=== PATIENT | male | born 1960 | race Caucasian/White ===

== ENCOUNTER 2016-11-26 22:16 | Emergency (ER) | payer BC ==
[2016-11-26] MEDS ORDERED: ONDANSETRON HCL/PF 2 MG/ML VIAL ONE (22:44)
[2016-11-26] MEDS ORDERED: MORPHINE SULFATE 2 MG/ML DISP.SYRIN ONE ×2 (22:44→23:36)
[2016-11-26] MEDS ORDERED: MORPHINE SULFATE 2 MG/ML DISP.SYRIN IV ONE ×2 (22:44→23:34)
[2016-11-26] MEDS ORDERED: ONDANSETRON HCL/PF 2 MG/ML VIAL IV ONE (22:44)
--- NOTE | 2016-11-26 22:48 | ERNOTE ---
Upper Extremity HPI - General Extremities Pain Location: shoulder: right - pain after fall Time Seen by Provider: 11/26/16 22:44 Source: patient Exam Limitations: no limitations - Immun/Allergies/Home Medications Immunizations: IMMUNIZATION HX Immunizations Up to Date Yes Allergies/Adverse Reactions: Allergies Allergy/AdvReac Type Severity Reaction Status Date / Time No Known Allergies Allergy Unverified 11/26/16 22:29 Home Medications: HOME MEDICATIONS HYDROcodone/ACETAMINOPHEN [Lorcet 5-325 mg Tablet] 1 - 2 each PO QID PRN #40 tablet 11/27/16 [Last Taken Unknown] - History of Present Illness Narrative: Pt slipped at [employer] and tried to catch himself with his right arm as he fell. Pt now has pain and deformity of his right shoulder. Occurred: just prior to arrival Location of Incident: work Severity: moderate Method of Injury: Reports: fell Reason for Fall: Reports: slipped Loss of Consciousness: Reports: no loss of consciousness Modifying Factors - (Worsens): Reports: movement Other Injuries: Reports: none Review of Systems - Review of Systems Constitutional: Absent: recent illness EYE: Present: no symptoms reported ENT: Present: no symptoms reported Respiratory: Absent: shortness of breath Cardiology: Absent: chest pain Gastrointestinal/Abdominal: Present: no symptoms reported Genitourinary: Present: no symptoms reported Musculoskeletal: Present: See HPI. Absent: back pain Skin: Present: no symptoms reported Hematologic/Lymphatic: Present: no symptoms reported - Patient's Past Medical History Patient History - Medical: No pertinent hx Patient History - Cardiac/Respiratory: Hypertension Patient History - Cancer: No Hx of Cancer Patient History - Surgical Procedures: No surgical history Patient History - Other: None - Social History Living Situations: home Psych History: No pertinent hx Smoking Status: Current every day smoker Alcohol Use: rarely Drug Use: none - Immunizations Immunizations Up to Date: Yes Physical Exam - Physical Exam General Appearance: Present: wd/wn, alert, moderate distress Head Exam: Present: normal inspection, no evidence of injury Ears, Nose, Throat: Present: normal ENT inspection Neck: Present: normal inspection, nontender, supple, full range of motion Respiratory: Present: no respiratory distress, no accessory muscle use Peripheral Pulses: N=norm/S=strong/W=weak/B=bound/A=absent: Radial (R): Normal Back Exam: Present: normal inspection, normal range of motion Extremity Exam: Present: decreased range of motion - right shoulder, minimal movement before causing moderate pain. , other - right shoulder tenderness, anterior fullness. Neurological Exam: Present: alert, oriented, normal mood/affect, no motor/ sensory deficits Skin Exam: Present: normal color, warm/dry ED Progress - Vital Signs Vital Signs: Vital Signs 11/26/16 22:25 Temperature 36.5 C Pulse Rate 88 Respiratory 22 H Rate Blood Pressure 152/108 O2 Sat by Pulse 100 Oximetry - X-Ray X-Ray #1 X-Ray: shoulder Interpretation: Interp. by me X-ray Comments: right shoulder anterior/inferior dislocation without visible fracture X-Ray #2 X-Ray: shoulder Interpretation: Interp. by me X-ray Comments: Post reduction films show good alignment. - Progress/Reassessment Chief Complaint: Upper Extremity Injury/Problem Procedures Joint Reduction Site: shoulder (R) Conscious Sedation: Yes - per anesthesia Reduction Attempts: 1 Pre-Procedure NV Exam: Yes - N/V intact to hand Post-Procedure NV Exam: Yes - N/V intact to hand Post Joint Reduction Film: joint reduced Complications: Pt jarett procedure well Departure Clinical Impression: Shoulder dislocation Qualifiers: Encounter type: initial encounter Laterality: right Qualified Code(s): S43.004A - Unspecified dislocation of right shoulder joint, initial encounter - Departure Disposition: Home self-care Condition: Good Instructions: How to Use a Shoulder Immobilizer, Shoulder Dislocation, Easy-to- Read Additional Instructions: Call orthopedics for follow up in the next week or so. Take pain medication as needed. Keep your shoulder immobilizer on except for bathing. Referrals: Reji Timmons MD [Staff Physician] - Prescriptions: HYDROcodone/ACETAMINOPHEN [Lorcet 5-325 mg Tablet] 1 - 2 each PO QID PRN #40 tablet PRN Reason: Pain
[2016-11-27] MEDS ORDERED: HYDROcodone/ACETAMINOPHEN 1 EACH TABLET PO ONE (01:10)
[2016-11-27] MEDS ORDERED: HYDROcodone/ACETAMINOPHEN 1 EACH TABLET ONE (01:22)
[2016-11-27 02:40] VITALS: BP 127/82
== END 2016-11-27 01:30 | disposition home or self-care (01) ==
LOC: ER 22:16
PROC: 0RSJXZZ Reposition Right Shoulder Joint, External Approach (ICD-10-PCS; principal; 2016-11-26)
DX: S43.004A Unspecified dislocation of right shoulder joint, initial encounter (principal); W01.0XXA Fall on same level from slipping, tripping and stumbling without subsequent striking against object, initial encounter; Y93.9 Activity, unspecified; Y92.512 Supermarket, store or market as the place of occurrence of the external cause; Y99.0 Civilian activity done for income or pay; F17.200 Nicotine dependence, unspecified, uncomplicated
CPT/HCPCS: 23655; 73020; 96374; 96375; 99284; J2405